=== PATIENT | female | born 1965 | race Caucasian/White ===

== ENCOUNTER 2020-02-08 11:39 | Day surgery (SDC) | payer OTHER ==
[~2020-02-08 11:39] MED LIST: Bupivacaine 0.5% 50 ML MDV ONE; Lidocaine 2% 20 ML MDV ONE
[2020-02-08] MEDS ORDERED: Lactated Ringers 1,000 ML IV SCH (12:00)
[2020-02-08] MEDS ORDERED: ceFAZolin 2 GM in Premix Bag 1 BAG IV ONE (12:30)
[2020-02-08] MEDS ORDERED: fentaNYL 100 MCG/2 ML SDV ONE ×2 (12:52→13:42)
[2020-02-08] MEDS ORDERED: Propofol 200 MG/20 ML SDV ONE ×3 (12:52→13:35)
[2020-02-08] MEDS ORDERED: Midazolam 1 MG/ML 2 ML SDV ONE ×2 (12:52→13:16)
[2020-02-08] MEDS ORDERED: Acetaminophen/HYDROcodone 325-5 MG Tab PO ONE (15:29)
--- NOTE | 2020-02-08 18:39 | OR ---
DATE OF PROCEDURE: 02/08/2020 SURGEON: Jose Tavares DPM [employer] WORKER: None. 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 PROCEDURE: Repair of nonunion right 5th metatarsal base with bone graft harvest from the right tibia. ANESTHESIA: Local with IV sedation. HEMOSTASIS: Obtained with a calf tourniquet on the right calf at 250 mmHg. ESTIMATED BLOOD LOSS: 5 mL. MATERIALS: Arthrex 5th metatarsal hook plate was used with 4 screws, 3 locking screws and 1 nonlocking screw, and also DBX bone putty was placed in the graft harvest site in the right tibia. INJECTABLES: A total of 20 mL of a 1:1 mixture of lidocaine 2% plain Marcaine 0.5% plain was injected intraoperatively, a total 20 mL of Marcaine 0.5% plain was injected around the right ankle and the right lateral foot. PATHOLOGY: None. CONDITION: Stable. INDICATIONS FOR SURGERY: Painful nonunion, right 5th metatarsal base, that was unresponsive to conservative measures. PROCEDURE IN DETAIL: The patient was brought to the operating room and placed on the operating table in the supine position. Following IV sedation, anesthesia was obtained with a total of 20 mL of 1:1 mixture of lidocaine 2% plain Marcaine 0.5% plain in the right ankle and lateral foot. The right ankle and foot were then scrubbed, prepped, and draped in the usual aseptic manner and raised to 60 degrees for hemostasis and exsanguinated using Esmarch bandage. Tourniquet was inflated. Foot was lowered to the table. A skin incision was made over the lateral aspect of the right 5th metatarsal for approximately 3/4 of the length of the 5th metatarsal. The incisions were deepened through subcutaneous tissues with care taken to identify and retract all vital neurovascular structures. Following subcutaneous dissection, we reflected the periosteum off the lateral aspect of the right 5th metatarsal base and proximal shaft. The nonunion was identified both visually and fluoroscopically and then debrided with a rongeur to remove all sclerotic and necrotic bone down to healthy bleeding bone. Then both edges of the nonunion were fenestrated with a 1.6 mm K-wire. Then our attention was turned to the distal medial aspect of the right tibia. An incision was made in the distal medial right tibia proximal to the ankle joint under fluoroscopic guidance. The incisions were deepened through subcutaneous tissues with care taken to identify and retract all vital neurovascular structures. Following subcutaneous dissection, an incision was made into the periosteum. The periosteum was carefully dissected off the tibia with a [place] elevator and a 15 blade, and then the window was created in the tibia by punching holes for the 4 corners of the square, where the window was going to be with a 1.6 mm K-wire and then a sagittal saw was used to complete the square. The window was removed and then curette was used to remove cancellous bone from the inside of the tibia. When an adequate amount had been removed, then the tibial donor site was filled with DBX, and then the window that was initially cut out was replaced, and then the incision was closed in a subcutaneous closure on the distal medial tibia with 3-0 Vicryl, and 3-0 nylon in a horizontal mattress configuration. Our attention was then turned to the 5th metatarsal base. Again, the nonunion site was packed with the autologous bone graft from the right tibia and then the plate was placed on the right 5th metatarsal under compression and the distal most screw was placed. The compression was placed on the 5th metatarsal to make sure that the nonunion site was reduced. We checked it both visually and fluoroscopically and found that it was, so then 2 more locking screws were placed in the distal portion of the plate, and then to make sure that there was better more rigid construct, we did place 1 screw from the proximal aspect of the plate into the shaft of the 5th metatarsal. Position was checked both visually and fluoroscopically and found to be anatomic. The incision was flushed out with sterile saline, and then deep and subcutaneous closure was obtained with 3- 0 Vicryl skin closure with 3-0 Prolene in a horizontal running configuration and then a postoperative injection was given. Incisions were dressed with Xeroform, 4x4s, Kerlix, and then Dr. Tavares applied a posterior splint to the right leg. The patient was returned to the recovery room with vital signs stable and vascular status intact to both feet. The patient was given instructions for rest, ice, and elevate the right leg. Maintain strict nonweightbearing on the right leg for 8 weeks, and ambulate with crutches and to return to clinic for followup in 1 week at which time, she will be re-evaluated and we will get a followup x-ray at that time, right foot nonweightbearing and 3-views of the right ankle. The patient was told to go the emergency room immediately if she has any nausea, vomiting, fever, chills, chest pain, calf pain, or difficulty breathing. The patient is told to keep dressings clean, dry, and intact. Jose Tavares DPM /[id number]
== END 2020-02-08 16:05 | disposition home or self-care (01) ==
LOC: JP.SDS 11:39
PROVIDERS: ATTEND Podiatrist Foot & Ankle Surgery
DX: S92.351K Displaced fracture of fifth metatarsal bone, right foot, subsequent encounter for fracture with nonunion (principal); I48.91 Unspecified atrial fibrillation; Z98.890 Other specified postprocedural states; Z79.82 Long term (current) use of aspirin; Z79.899 Other long term (current) drug therapy
CPT/HCPCS: 28322; 76000; A9270; C1713; J0690; J2001; J2250; J2704; J3010; J3490; J7120